=== PATIENT | male | born 1985 | race Caucasian/White ===

== ENCOUNTER 2019-11-07 14:50 | Emergency (ER) | payer OTHER ==
[2019-11-07 14:56] VITALS: BP 113/63; PULSE 65; TEMP 97; BMI 29.8
[2019-11-07] MEDS ORDERED: FLUORESCEIN NA 1 EA STRIP OD ONE (15:12)
[2019-11-07] MEDS ORDERED: TETRACAINE 0.5% OPHTH SOLN 2 ML BOTTLE OD ONE (15:12)
--- NOTE | 2019-11-07 15:45 | PDOC ---
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 Pt states he was stripping a wire and felt a piece of metal get in his eye. he has not been able to get it out and has had increased pain and injection. Pt has now began to have mild photophobia without vision changes or diplopia. Pt otherwise denies: fevers, chills, syncope, lightheadedness, dizziness, headaches, neck pain, chest pain, shortness of breath, palpitations, back pain, abdominal pain, nausea, vomiting, diarrhea, constipation. Past History - Medical History Allergies/Adverse Reactions: Allergies Allergy/AdvReac Type Severity Reaction Status Date / Time No Known Allergies Allergy Verified 11/07/19 14:55 COPD: No - Psycho-Social/Smoking History Smoking History: Never smoked - Substance Abuse Hx (Audit-C & DAST Scrn) How often the patient has a drink containing alcohol: Never Score: In Men: 4 or > Positive; In Women: 3 or > Positive: 0 Screen Result (Pos requires Nsg. Audit-10AR): Negative *Physical Exam - Vital Signs Last Vital Signs Temp Pulse Resp BP Pulse Ox 97 F L 65 18 113/63 98 11/07/19 14:53 11/07/19 14:53 11/07/19 14:53 11/07/19 14:53 11/07/19 14:53 - Physical Exam 11/07/19 15:42 Gen: AAOx 3, no acute distress, comfortable, no signs of respiratory distress HENT: atraumatic, normocephalic with no laceration or contusion. Nasal mucosa without erythema. Oropharynx without erythema or exudates. Mucous membranes moist. EYES: SIMA and EOMI. No pin-point pupils on exam. No signs of conjunctivitis vs injection to the Left eye. R eye severely injected No resting nystagmus. No signs of hordeolum or chalazion . No purulent drainage. No Pedro Hunn pupils or Samia's syndrome. No lid edema or proptosis to the eye. No entrapment of extraocular muscles. Peripheral visual amato intact. VA R 20/40 L 20/30 B/L 20/30 NECK: supple; trachea midline; no JVD, no lymphadenopathy, or thyromegaly CV: RRR no murmurs, gallops, or rubs. CHEST: CTA b/l no wheezing, rales or rhonchi ABD: +BS/ND. no TTP; soft, no rebound, no guarding EXTREMITY: no cyanosis or erythema. 2+ dorsalis pedis, posterior tibial, and radial pulse. No pedal edema; no calf swelling or tenderness SKIN: no rash, warm and dry, no diaphoresis HEME: no purpura or ecchymosis NEURO: normal speech, CN II-XII intact, sensation intact, normal gait, no cerebellar deficits MS: 5/5 strength in all extremities, FROM intact in all extremities. Medical Decision Making - Medical Decision Making 11/07/19 15:43 34 year old male with FB sensation in R eye VSS Will assess for corneal abrasion and FB Update tetanus 2/2 metal FB Tetracaine placed to R eye to numb eyes. Eyelid inverted to r/o foreign body. Foreign body visualized at the 11 o clock position. Fluorescein dye placed in b/l eyes to r/o corneal abrasion. Fluorescein dye uptake around FB. No ice-rink sign. Pt is stable. Unable to remove with cotton ip applicator Due to FB visualized and inability to remove and no optho immigration coordinator pt is to be transferred to [facility]. Pt was accepted by Dr Martin of [facility] for ED to ED transfer. . P refused tetanus Pt is safe and stable for BLS transfer 1650 Pt has left the ED via BLS for transfer without complication. Discharge - Discharge Information Problems reviewed: Yes Clinical Impression/Diagnosis: Corneal foreign body Qualifiers: Encounter type: initial encounter Laterality: right Qualified Code(s): T15.01XA - Foreign body in cornea, right eye, initial encounter Condition: Stable Disposition: TRANSFER ACUTE CARE/OTHER HOSP - Follow up/Referral - Patient Discharge Instructions - Post Discharge Activity - Transfer to Acute Care Facility Receiving Facility Name: [facility] (Dr Martin)
[2019-11-07] MEDS ORDERED: DIPHTH,PERTUSS(ACELL),TET 0.5 ML DISP.SYRIN IM ONE ×2 (16:22→16:38)
== END 2019-11-07 17:24 | disposition short-term general hospital (02) ==
LOC: JERFT 14:50
DX: T15.01XA Foreign body in cornea, right eye, initial encounter (principal)
CPT/HCPCS: 99283-25